=== PATIENT | female | born 1985 | race Caucasian/White ===

== ENCOUNTER → 2024-05-25 | Outpatient (CLI) | payer OTHER ==
[2024-05-25 15:40] LABS: HEMOGLOBIN 11.9 g/dl (12.0-15.5); MEAN CORPUSCULAR HEMOGLOBIN 31.5 pg (27.0-33.0); MEAN CORPUSCULAR HGB CONC 33.1 g/dl (32.0-36.5); MEAN CORPUSCULAR VOLUME 95.2 fl (80.0-96.0); PLATELET COUNT, AUTOMATED 341 10^3/uL (150-450); RED BLOOD COUNT 3.78 10^6/uL (4.00-5.40); WHITE BLOOD COUNT 10.7 10^3/uL (4.0-10.0)
[2024-05-25 16:36] LABS: GC DNA AMPLIFICATION NEGATIVE (NEGATIVE)
== END ==
LOC: M PLALAB 13:38
PROVIDERS: ATTEND Obstetrics & Gynecology
DX: O24.319 Unspecified pre-existing diabetes mellitus in pregnancy, unspecified trimester (principal)

== ENCOUNTER → 2024-06-05 | Outpatient (CLI) | payer OTHER | LOC: M EKG 12:42 | PROVIDERS: ATTEND Advanced Practice Midwife | DX: O24.32 Unspecified pre-existing diabetes mellitus in childbirth (principal); O09.529 Supervision of elderly multigravida, unspecified trimester; Z3A.00 Weeks of gestation of pregnancy not specified ==

== ENCOUNTER → 2024-06-11 | Outpatient (CLI) | payer OTHER | LOC: M RAD 14:55 → EDUNIT# 15:15 | PROVIDERS: ATTEND Obstetrics & Gynecology | DX: O24.319 Unspecified pre-existing diabetes mellitus in pregnancy, unspecified trimester (principal) ==

== ENCOUNTER → 2024-07-28 | Outpatient (REF) | payer OTHER ==
[~2024-07-28] MED LIST: ASPI81TA26 PO; BENA25CA4 PO; COLA100C5 PO; IBUP80TA PO; INSUN SC; INSUR SC; NEXI20CA33 PO; NOVOINJ13 SC; PREN1CHW6 PO; TRAM50TA2 PO
== END ==
LOC: M PLALAB 10:19
PROVIDERS: ATTEND Specialist
DX: O24.113 Pre-existing type 2 diabetes mellitus, in pregnancy, third trimester (principal); Z36.85 Encounter for antenatal screening for Streptococcus B; Z3A.00 Weeks of gestation of pregnancy not specified

== ENCOUNTER → 2024-08-06 | Outpatient (CLI) | payer OTHER | LOC: M WHC 12:46 | PROVIDERS: ATTEND Specialist | DX: O24.113 Pre-existing type 2 diabetes mellitus, in pregnancy, third trimester (principal) ==

== ENCOUNTER 2024-08-17 05:53 | Inpatient (IN) | payer OTHER ==
[~2024-08-17] VITALS: Ht 157.5 cm; Wt 89.2 kg
[2024-08-17] VITALS (9 sets, daily range): BP systolic 92–105; BP diastolic 55–65; O2SAT 95–99
[~2024-08-17 05:53] MED LIST changes: -IBUP80TA PO; -TRAM50TA2 PO
[2024-08-17] MEDS ORDERED: LR 1,000 ML IV SCH (06:10)
[2024-08-17] MEDS: LACTATED RINGER'S 1000 ML IV STA (06:42)
[2024-08-17] MEDS: ceFAZolin SOD 2 GM in IV 1 EA IV ONE (07:19)
[2024-08-17] MEDS: BICITRA 30ML SOLN UDC PO ONE (07:19)
[2024-08-17 07:23] LABS: HEMATOCRIT 28.8 % (36.0-47.0); MEAN CORPUSCULAR HEMOGLOBIN 27.1 pg (27.0-33.0); MEAN CORPUSCULAR HGB CONC 31.3 g/dl (32.0-36.5); MEAN CORPUSCULAR VOLUME 86.7 fl (80.0-96.0); PLATELET COUNT, AUTOMATED 259 10^3/uL (150-450); RED BLOOD COUNT 3.32 10^6/uL (4.00-5.40); WHITE BLOOD COUNT 8.2 10^3/uL (4.0-10.0)
[2024-08-17 07:48] LABS: HEPATITIS C VIRUS ABY INDEX < 0.02 INDEX (<0.8)
[2024-08-17] MEDS ORDERED: SLF 3 ML SYR IV SCH (08:00)
[2024-08-17] MEDS ORDERED: NALOXONE INJ 0.4MG/1ML VIAL IV PRN ×3 (08:00→08:55)
[2024-08-17] MEDS ORDERED: METOCLOPRAMIDE INJ 10MG/2ML VIAL IV PRN (08:00)
[2024-08-17] MEDS ORDERED: NALBUPHINE HCL 10 MG/ML 1ML AMP IV PRN (08:00)
[2024-08-17] MEDS ORDERED: diphenhydrAMINE 50MG/ML VIAL IV PRN ×2 (08:00→08:55)
[2024-08-17] MEDS ORDERED: **NOTE PATIENT COMMENT** MISC XX SCH ×2 (08:00→08:55)
[2024-08-17] MEDS ORDERED: fentaNYL 100 MCG/2 ML INJECTION As Ordered ONE (08:15)
[2024-08-17] MEDS ORDERED: MORPHINE PRES-FREE INJ 10 MG/10 ML VIAL As Ordered ONE (08:15)
[2024-08-17] MEDS ORDERED: OXYTOCIN INJ 10UNITS/ML 1ML VIAL As Ordered ONE (08:15)
[2024-08-17] MEDS ORDERED: PHENYLephrine 500MCG 5ML (100MCG/ML) SYRINGE As Ordered ONE (08:15)
[2024-08-17] MEDS ORDERED: GLYCOPYRROLATE INJ 0.2 MG/ML 2 ML VIAL As Ordered ONE (08:15)
[2024-08-17] MEDS ORDERED: KETOROLAC 60MG 2ML VIAL As Ordered ONE (08:24)
[2024-08-17 08:29] LABS: CORD GAS ABE A -2.1; CORD GAS HCO3 A 24.1 MMOL/L; CORD GAS O2 SAT A 62.6 %; CORD GAS PCO2 A 47.1 mmHg; CORD GAS PH A 7.326 UNITS; CORD GAS PO2 A 27.4 mmHg; CORD GAS TCO2 A 25.5 MMOL/L
[2024-08-17 08:31] LABS: CORD GAS ABE V -2.8; CORD GAS HCO3 V 22.4 MMOL/L; CORD GAS O2 SAT V 69.9 %; CORD GAS PCO2 V 40.1 mmHg; CORD GAS PH V 7.364 UNITS; CORD GAS PO2 V 28.6 mmHg; CORD GAS SBC V 21.6 MMOL/L; CORD GAS TCO2 V 23.6 MMOL/L
[2024-08-17] MEDS ORDERED: RHO(D) IMMUNE GLOBULIN/MALTOSE 500MCG(2500IU)/2.2ML VIAL (WINRHO) IM SCH (08:45)
[2024-08-17] MEDS: LR 1,000 ML IV SCH (08:45)
[2024-08-17] MEDS ORDERED: ONDANSETRON 4MG 2ML VIAL IV PRN ×2 (08:45→08:55)
[2024-08-17] MEDS ORDERED: SIMETHICONE 80MG CHEW TAB PO PRN (08:45)
[2024-08-17] MEDS ORDERED: HYDROMORPHONE HCL 0.5 MG/ 0.5 ML SYRINGE IV PRN (08:55)
[2024-08-17] MEDS: SLF 3 ML SYR IV SCH (08:55)
[2024-08-17] MEDS ORDERED: MEPERIDINE 25 MG/ML 1ML VIAL IV PRN (08:55)
[2024-08-17] MEDS ORDERED: fentaNYL 100 MCG/2 ML INJECTION IV PRN (08:55)
[2024-08-17] MEDS: PRENATAL VITAMINS CHEWABLE TABLET PO SCH (09:00)
[2024-08-17] MEDS ORDERED: TRAM50TA2 PO (09:09)
[2024-08-17] MEDS ORDERED: COLA100C5 PO (09:09)
[2024-08-17] MEDS ORDERED: OXYTOCIN 30UNITS IN 0.9% NaCl 500ML IV BAG As Ordered ONE (09:09)
[2024-08-17] MEDS ORDERED: IBUP80TA PO (09:09)
[2024-08-17] MEDS: OXYTOCIN DRIP 30 UNITS in IV 1 EA IV SCH (09:24)
[2024-08-17] MEDS: METOCLOPRAMIDE INJ 10MG/2ML VIAL IV PRN (10:56)
[2024-08-17] MEDS: KETOROLAC 30 MG/ML 1ML VIAL IV SCH (15:07)
[2024-08-18 02:00] VITALS: BP 104/52; O2SAT 96
[2024-08-18 05:54] VITALS: BP 110/60; O2SAT 95
[2024-08-18] MEDS: traMADol 50 MG TAB PO PRN ×2 (09:20→16:32)
[2024-08-18] MEDS: IBUPROFEN 800 MG TAB PO SCH (10:44)
[2024-08-18 10:49] VITALS: BP 110/60; TEMP 98; O2SAT 99
[2024-08-18 11:24] LABS: HEMATOCRIT 27.3 % (36.0-47.0); HEMOGLOBIN 8.7 g/dl (12.0-15.5); MEAN CORPUSCULAR HEMOGLOBIN 27.3 pg (27.0-33.0); MEAN CORPUSCULAR HGB CONC 31.9 g/dl (32.0-36.5); MEAN CORPUSCULAR VOLUME 85.6 fl (80.0-96.0); PLATELET COUNT, AUTOMATED 260 10^3/uL (150-450); RED BLOOD COUNT 3.19 10^6/uL (4.00-5.40); WHITE BLOOD COUNT 13.6 10^3/uL (4.0-10.0)
[2024-08-18 14:11] VITALS: BP 110/60
[2024-08-18] MEDS ORDERED: FLUZONE VACCINE TRIVALENT PF(2024-25) 0.5ML SYRINGE IM.IMMUN ONE (16:00)
[2024-08-18 18:29] VITALS: BP 108/64; O2SAT 100
[2024-08-18 22:00] VITALS: BP 114/54; O2SAT 94
[2024-08-18] MEDS: DOCUSATE SODIUM 100MG CAPSULE PO PRN (22:24)
[2024-08-19 02:00] VITALS: BP 130/70; O2SAT 96
[2024-08-19 06:00] VITALS: BP 103/58; O2SAT 96
[2024-08-19] MEDS: MEASLES,MUMPS,RUBELLA VACCINE INJ (MMR-II) SC.IMMUN ONE (12:37)
[2024-08-19] MEDS: FLUZONE VACCINE TRIVALENT PF(2024-25) 0.5ML SYRINGE IM.IMMUN ONE (12:38)
== END 2024-08-19 16:53 | disposition home or self-care (01) | DRG 783 ==
LOC: M LDI 05:53 → M OBS 10:08
PROVIDERS: ADMIT Specialist; ATTEND Specialist
PROC: 0UB70ZZ Excision of Bilateral Fallopian Tubes, Open Approach (ICD-10-PCS; 2024-08-17)
PROC: 10D00Z1 Extraction of Products of Conception, Low, Open Approach (ICD-10-PCS; principal; 2024-08-17 07:30)
DX: O34.211 Maternal care for low transverse scar from previous cesarean delivery (principal); O24.12 Pre-existing type 2 diabetes mellitus, in childbirth; Z3A.38 38 weeks gestation of pregnancy; Z30.2 Encounter for sterilization; Z37.0 Single live birth